=== PATIENT | female | born 1950 | race Caucasian/White ===

== ENCOUNTER 2022-06-01 06:05 | Day surgery (SDC) | payer MEDICARE, OTHER ==
[2022-05-30 11:04] LABS: COVID AG,FIA SOURCE NASOPHARYNGEAL
[~2022-06-01] VITALS: Ht 163.8 cm; Wt 83.1 kg
[~2022-06-01 06:05] MED LIST: AMLO2.5T96 PO; ATOR40TA28 PO; DOXY50 PO; LAMO100 PO; LEVO75 PO; MIRT-89 PO; MONT-35 PO; SERT-162 PO; SODIUM CHLORIDE 0.9% 1,000 ML IV ONE
[2022-06-01] MEDS ORDERED: SODIUM CHLORIDE 0.9% 1,000 ML ONE (06:34)
[2022-06-01 07:02] LABS: GLUCOMETER DEV NAME(LOC) SDS.; GLUCOSE,POINT OF CARE 111 MG/DL (70-110)
[2022-06-01] MEDS ORDERED: LIDOCAINE/PF 2% 5 ML SYRINGE IVP ONE (12:00)
[2022-06-01] MEDS ORDERED: PROPOFOL 1% 20 ML VIAL IVP ONE (12:00)
== END 2022-06-01 09:30 | disposition home or self-care (01) ==
LOC: SURGERY 06:05
PROVIDERS: ATTEND Surgery
DX: K57.30 Diverticulosis of large intestine without perforation or abscess without bleeding (principal); R13.10 Dysphagia, unspecified; K59.00 Constipation, unspecified; K63.89 Other specified diseases of intestine; Z79.899 Other long term (current) drug therapy; Z98.890 Other specified postprocedural states
CPT/HCPCS: 87426; 45378; 43239; 82962; 88305; 88312; 88313; C9803; C1769; J2704; J3490; J7030; 88307